=== PATIENT | female | born 1990 | race Caucasian/White ===

== ENCOUNTER 2019-02-05 11:15 | Emergency (ER) | payer SELFPAY ==
[2019-02-05] MEDS ORDERED: ALBUTEROL 2.5 MG/3 ML NEB SOL ONE (12:27)
[2019-02-05 12:34] LABS: Urine Blood 3+ (NEG); Urine Glucose NEGATIVE (NEG); Urine Protein 3+ (NEG); Urine Specific Gravity 1.025 (1.005-1.030)
[2019-02-05 12:34] LABS: Urine Bacteria <20 /HPF (<20); Urine Culture Reflex Order NOT NEEDED; Urine Mucus 2+ /HPF (NONE SEEN)
[2019-02-05] MEDS ORDERED: CEFTRIAXONE 1000 MG/VIAL ONE (12:42)
[2019-02-05] MEDS ORDERED: WATER FOR INJ,STERILE 10 ML ONE (12:43)
[2019-02-05 13:08] LABS: Barbiturates NEGATIVE (NEGATIVE); Benzodiazepines NEGATIVE (NEGATIVE); Cocaine NEGATIVE (NEGATIVE); METHAMPHETAM NEGATIVE (NEGATIVE); Methadone NEGATIVE (NEGATIVE); Opiates NEGATIVE (NEGATIVE); Phencyclidine NEGATIVE (NEGATIVE); THC Cannibis POSITIVE (NEGATIVE)
--- NOTE | 2019-02-05 13:18 | EDPHYS ---
Physician Documentation [facility] Name: Yaritza Perkins Age: 28 yrs Sex: Female : 1990 Arrival Date: 02/05/2019 Time: 11:19 Bed 15 Private MD: None, None ED Physician Art Steiner HPI: 02/05 12:12 This 28 yrs old Female presents to ER via Ambulatory with complaints of Back snw Pain, Flank Pain, Congestion. 12:12 The patient presents with pain that is acute. The symptoms are located in the low back. snw The pain radiates to the right lower quadrant and left lower quadrant. Associated signs and symptoms: Pertinent positives: weakness, generalized discomfort. The problem was sustained from unknown cause. Severity of symptoms: At their worst the symptoms were moderate. It is unknown whether or not the patient has had similar symptoms in the past, coworker in ED with similar s/s. It is unknown whether or not the patient has recently seen a physician. 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 - Social history:: Smoking status: unknown. - Ebola Screening: : Patient negative for fever greater than or equal to 101.5 degrees Fahrenheit, and additional compatible Ebola Virus Disease symptoms Patient denies exposure to infectious person Patient denies travel to an Ebola-affected area in the 21 days before illness onset. ROS: 12:10 Constitutional: Negative for fever, chills, and weight loss, Eyes: Negative for injury, snw pain, redness, and discharge, ENT: Negative for injury, pain, and discharge, Neck: Negative for injury, pain, and swelling, Cardiovascular: Negative for chest pain, palpitations, and edema, Respiratory: Negative for shortness of breath, cough, wheezing, and pleuritic chest pain. 12:10 MS/Extremity: Negative for injury and deformity, Skin: Negative for injury, rash, and discoloration, Neuro: Negative for headache, weakness, numbness, tingling, and seizure, Psych: Negative for depression, anxiety, suicide ideation, homicidal ideation, and hallucinations. 12:10 Abdomen/GI: Positive for abdominal pain, nausea, abdominal cramps. 12:10 Back: Positive for pain with movement, radiated pain. 12:10 : Positive for urinary symptoms, urinary frequency, small amounts, hematuria, irreg periods. Exam: 12:10 Constitutional: This is a well developed, well nourished patient who is awake, alert, snw and in no acute distress. Head/Face: Normocephalic, atraumatic. 12:10 ENT: Nares patent. No nasal discharge, no septal abnormalities noted. Tympanic membranes are normal and external auditory canals are clear. Oropharynx with no redness, swelling, or masses, exudates, or evidence of obstruction, uvula midline. Mucous membranes moist. Neck: Trachea midline, no thyromegaly or masses palpated, and no cervical lymphadenopathy. Supple, full range of motion without nuchal rigidity, or vertebral point tenderness. No Meningismus. Chest/axilla: Normal chest wall appearance and motion. Nontender with no deformity. No lesions are appreciated. Cardiovascular: Regular rate and rhythm with a normal S1 and S2. No gallops, murmurs, or rubs. Normal PMI, no JVD. No pulse deficits. 12:10 Skin: Warm, dry with normal turgor. Normal color with no rashes, no lesions, and no evidence of cellulitis. MS/ Extremity: Pulses equal, no cyanosis. Neurovascular intact. Full, normal range of motion. Neuro: Awake and alert, GCS 15, oriented to person, place, time, and situation. Cranial nerves II-XII grossly intact. Motor strength 5/5 in all extremities. Sensory grossly intact. Cerebellar exam normal. Normal gait. Psych: Awake, alert, with orientation to person, place and time. Behavior, mood, and affect are within normal limits. 12:10 Eyes: Extraocular movements: no acute changes, Lids and lashes: ecchymosis, on the left. 12:10 Respiratory: the patient does not display signs of respiratory distress, Respirations: normal, Breath sounds: wheezing: that is moderate. 12:10 Abdomen/GI: Inspection: abdomen appears normal, Bowel sounds: normal, Palpation: moderate abdominal tenderness, in the right lower quadrant and left lower quadrant. 12:10 Back: pain, that is moderate, ROM is normal, normal spinal alignment noted. Vital Signs: 11:30 BP 108 / 78; Pulse 78; Resp 18; Temp 98.0(TE); Pulse Ox 98% on R/A; Weight 54.43 kg; hj Height 5 ft. 3 in. (160.02 cm); Pain 8/10; 11:30 Body Mass Index 21.26 (54.43 kg, 160.02 cm) hj MDM: 11:52 Patient medically screened. snw 13:19 Data reviewed: vital signs, nurses notes. Data interpreted: Pulse oximetry: on room air snw is 98 %. Interpretation: normal. Counseling: I had a detailed discussion with the patient and/or guardian regarding: the historical points, exam findings, and any diagnostic results supporting the discharge/admit diagnosis, lab results, the need for outpatient follow up, to return to the emergency department if symptoms worsen or persist or if there are any questions or concerns that arise at home. Special discussion: Based on the history and exam findings, there is no indication for further emergent testing or inpatient evaluation. I discussed with the patient/guardian the need to see the primary care provider for further evaluation of the symptoms. 02/05 11:53 Order name: Urine Culture snw 02/05 11:53 Order name: Urine Microscopic Only; Complete Time: 12:45 snw 02/05 12:09 Order name: UDS; Complete Time: 13:14 snw 02/05 12:17 Order name: Urine Dipstick--Ancillary (enter results); Complete Time: 12:45 em1 02/05 12:17 Order name: Urine --Ancillary (enter results); Complete Time: 12:45 em1 02/05 11:53 Order name: Urine Test (obtain specimen); Complete Time: 12:13 snw 02/05 11:53 Order name: Urine Dipstick-Ancillary (obtain specimen); Complete Time: 12:13 snw Administered Medications: 12:15 Drug: Albuterol 2.5 mg Route: Inhalation; rv 12:52 Follow up: Response: Marked relief of symptoms rv 12:40 Drug: Rocephin (cefTRIAXone) 1 grams Route: IM; Site: right gluteus; rv Disposition: 14:40 Co-signature as Attending Physician, Art Steiner MD I agree with the assessment and kdr plan of care. Disposition: 02/05/19 13:17 Discharged to Home. Impression: Urinary tract infection, site not specified, Volume depletion, Myalgia. - Condition is Stable. - Discharge Instructions: Back Pain, Adult, Dehydration, Adult, Musculoskeletal Pain, Muscle Pain, Adult, Urinary Tract Infection, Adult, Cryotherapy, [id number], Rehydration, Adult, Heat Therapy. - Prescriptions for Augmentin 875- 125 mg Oral Tablet - take 1 tablet by ORAL route every 12 hours for 10 days; 20 tablet. Mobic 7.5 mg Oral Tablet - take 1 tablet by ORAL route once daily take with food; 20 tablet. - Work release form, Medication Reconciliation Form, Thank You Letter, Antibiotic Education, Prescription Opioid Use form. - Follow up: Private Physician; When: 2 - 3 days; Reason: Recheck today's complaints, Continuance of care, Re-evaluation by your physician. Follow up: Emergency Department; When: As needed; Reason: Worsening of condition. - Problem is an acute exacerbation. - Symptoms are unchanged. Signatures: Dispatcher [employer] EDMS Art Steiner MD MD [facility] Temi Ji, AUDIO NARRATOR-C AUDIO NARRATOR-Csnw Sandi Perkins RN RN iw Ahsan Oakes RN RN Nimesh Wesley, RN RN rv Corrections: (The following items were deleted from the chart) 13:33 13:17 02/05/2019 13:17 Discharged to Home. Impression: Urinary tract infection, site iw not specified; Volume depletion; Myalgia. Condition is Stable. Forms are Medication Reconciliation Form, Thank You Letter, Antibiotic Education, Prescription Opioid Use. Follow up: Private Physician; When: 2 - 3 days; Reason: Recheck today's complaints, Continuance of care, Re-evaluation by your physician. Follow up: Emergency Department; When: As needed; Reason: Worsening of condition. Problem is an acute exacerbation. Symptoms are unchanged. snw
--- NOTE | 2019-02-05 13:18 | ER ---
Nurse's Notes [facility] Name: Yaritza Perkins Age: 28 yrs Sex: Female : 1990 Arrival Date: 02/05/2019 Time: 11:19 Bed 15 Private MD: None, None Diagnosis: Urinary tract infection, site not specified;Volume depletion;Myalgia Presentation: 02/05 11:28 Presenting complaint: Patient states: 3 days ago, i got sick at work, i had fever and hj almost passed out, i have cramps on my L flank area and now the pain moves to the back; i had my periods 2 weeks ago and now im spotting again; reports N/V; reports cough;. Transition of care: patient was not received from another setting of care. Onset of symptoms was February 05, 2019. Risk Assessment: Do you want to hurt yourself or someone else? Patient reports no desire to harm self or others. Initial Sepsis Screen: Does the patient meet any 2 criteria? No. Patient's initial sepsis screen is negative. Does the patient have a suspected source of infection? No. Patient's initial sepsis screen is negative. Care prior to arrival: None. 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 - Social history:: Smoking status: unknown. - Ebola Screening: : Patient negative for fever greater than or equal to 101.5 degrees Fahrenheit, and additional compatible Ebola Virus Disease symptoms Patient denies exposure to infectious person Patient denies travel to an Ebola-affected area in the 21 days before illness onset. Screenin:27 Abuse screen: Denies threats or abuse. Denies injuries from another. Nutritional rv screening: No deficits noted. Tuberculosis screening: No symptoms or risk factors identified. Fall Risk None identified. Assessment: 12:26 General: Appears uncomfortable, ill, Behavior is calm, cooperative. Pain: Complains of rv pain in back. Neuro: Level of Consciousness is awake, alert, obeys commands, Oriented to person, place, time, situation. Cardiovascular: Capillary refill < 3 seconds. Respiratory: Airway is patent. GI: No signs and/or symptoms were reported involving the gastrointestinal system. : No signs and/or symptoms were reported regarding the genitourinary system. EENT: No signs and/or symptoms were reported regarding the EENT system. Derm: Skin is intact. Musculoskeletal: No signs and/or symptoms reported regarding the musculoskeletal system. 13:20 Reassessment: Patient appears in no apparent distress at this time. Patient and/or iw family updated on plan of care and expected duration. Pain level reassessed. Patient is alert, oriented x 3, equal unlabored respirations, skin warm/dry/pink. Vital Signs: 11:30 BP 108 / 78; Pulse 78; Resp 18; Temp 98.0(TE); Pulse Ox 98% on R/A; Weight 54.43 kg; hj Height 5 ft. 3 in. (160.02 cm); Pain 8/10; 11:30 Body Mass Index 21.26 (54.43 kg, 160.02 cm) hj ED Course: 11:19 Patient arrived in ED. mr 11:19 None, None is Private Physician. mr 11:30 Triage completed. hj 11:31 Arm band placed on left wrist. hj 11:41 Temi Ji FNP-C [facility]. snw 11:41 Art Steiner MD is Attending Physician. snw 12:02 Olivier Vidal LVN is Primary Nurse. em 12:10 Nimesh Wesley, JULIO C is Primary Nurse. rv 12:28 Patient has correct armband on for positive identification. Bed in low position. Call rv light in reach. Side rails up X 1. Pulse ox on. NIBP on. 12:51 Primary Nurse role handed off by Nimseh Wesley, JULIO C iw 12:51 Sandi Perkins, JULIO C is Primary Nurse. iw 13:32 No provider procedures requiring assistance completed. Patient did not have IV access iw during this emergency room visit. Administered Medications: 12:15 Drug: Albuterol 2.5 mg Route: Inhalation; rv 12:52 Follow up: Response: Marked relief of symptoms rv 12:40 Drug: Rocephin (cefTRIAXone) 1 grams Route: IM; Site: right gluteus; rv Outcome: 13:17 Discharge ordered by MD. goode 13:32 Discharged to home ambulatory, with family. iw 13:32 Condition: good 13:32 Discharge instructions given to patient, family, Instructed on discharge instructions, follow up and referral plans. medication usage, Demonstrated understanding of instructions, follow-up care, medications, Prescriptions given X 2. 13:33 Patient left the ED. iw Signatures: Temi Ji, CHOCOLATE TEMPERER-C CHOCOLATE TEMPERER-Csnw Umu Palacio, Olivier, GANG RIPSAW OPERATOR GANG RIPSAW OPERATOR Sandi Griffith, JULIO C RN Ahsan Oakes, RN RN Nimesh Wesley, RN RN rv Corrections: (The following items were deleted from the chart) 11:31 11:30 Pulse 78bpm; Resp 18bpm; Pulse Ox 98% RA; Temp 98.0F Temporal; 54.43 kg; Height 5 hj ft. 3 in.; BMI: 21.2; Pain 8/10; hj
[2019-02-05 14:15] VITALS: BP 108/78; TEMP 98; O2SAT 98
== END 2019-02-05 13:33 | disposition home or self-care (01) ==
LOC: ER 11:15
DX: N39.0 Urinary tract infection, site not specified (principal); E86.9 Volume depletion, unspecified; M79.10 Myalgia, unspecified site
CPT/HCPCS: 80307; 81003; 81015; 81025; 87086; 87088; 96372; 99284